=== PATIENT | male | born 1960 | race Caucasian/White ===

== ENCOUNTER 2017-02-18 11:26 | Day surgery (SDC) | payer MEDICAID ==
[~2017-02-18] VITALS: Ht 175.3 cm; Wt 79.4 kg
[2017-02-18] MEDS ORDERED: MIDAZOLAM 2 MG/2 ML VIAL ONE (12:53)
[2017-02-18] MEDS ORDERED: fentaNYL 0.05 MG/ML VIAL ONE (12:53)
[2017-02-18] MEDS ORDERED: LIDOCAINE 2% 100 MG/5 ML UJET TP ONE (12:57)
[2017-02-18] MEDS ORDERED: MIDAZOLAM 2 MG/2 ML VIAL IVP ONE ×2 (14:50→14:55)
[2017-02-18] MEDS ORDERED: fentaNYL 0.05 MG/ML VIAL IVP ONE ×2 (14:50→14:55)
== END 2017-02-18 14:46 | disposition home or self-care (01) ==
LOC: MDS 11:26 → MMU 11:28 → MDS 14:46
PROVIDERS: ATTEND Internal Medicine Gastroenterology
DX: Z12.11 Encounter for screening for malignant neoplasm of colon (principal); K57.30 Diverticulosis of large intestine without perforation or abscess without bleeding
CPT/HCPCS: 45378; J2250; J3010